=== PATIENT | male | born 1995 | race Two or more races ===

== ENCOUNTER 2024-02-25 18:33 | Emergency (ER) | payer MEDICAID, OTHER ==
[~2024-02-25] VITALS: Ht 170.2 cm; Wt 143.5 kg
[2024-02-25 19:54] VITALS: BP 123/74; PULSE 74; RESP 18; TEMP 97.3; O2SAT 98
== END 2024-02-25 21:37 | disposition home or self-care (01) ==
LOC: ER 18:33
DX: S60.211A Contusion of right wrist, initial encounter (principal); S50.11XA Contusion of right forearm, initial encounter; S60.221A Contusion of right hand, initial encounter; W22.8XXA Striking against or struck by other objects, initial encounter; Y93.89 Activity, other specified; Y92.89 Other specified places as the place of occurrence of the external cause; Y99.8 Other external cause status
CPT/HCPCS: 73090; 73110; 73130